=== PATIENT | female | born 1950 | race Caucasian/White ===

== ENCOUNTER 2024-07-23 13:02 | Emergency (ER) | payer MEDICARE, MEDICAID ==
[~2024-07-23] VITALS: Ht 172.7 cm; Wt 62.0 kg
[~2024-07-23 13:02] MED LIST: ALBU18HF2 INH; ALPR0.5T9 PO; AMLO10TA PO; BUSP5TAB3 PO; CETI-90 PO; CYCL-920 PO; DICY-19 PO; DOCU100C40 PO; DULO60CA65 PO; ESCI20TA39 PO; ESOM40CA PO; ESTR1TAB19 PO; GABA100C PO; HYDR-3965 PO; LISI20TA28 PO; LORA10TA7 PO; MELA5TAB66 PO; METR-159 PO; RANI150T8 PO; SENN8.6T19 PO; SUCR1TAB34 PO
[2024-07-23 13:14] VITALS: TEMP 98.9
[2024-07-23] MEDS: diatr meglu/diatrizoate 30ml oral sol.-(3 dose) bottle PO SCH (13:15)
[2024-07-23 13:40] LABS: BILIRUBIN,URINE NEGATIVE (Neg); CLARITY,URINE CLEAR (Clear); COLOR,URINE YELLOW (Yellow); GLUCOSE, URINE NEGATIVE (Neg); KETONES,URINE 15 mg/dl (Neg); LEUKOCYTE ESTERASE ,URINE NEGATIVE (Neg); NITRITES, URINE NEGATIVE (Neg); OCCULT BLOOD,URINE NEGATIVE (Neg); PH,URINE 8.5 (4.8-8.0); PROTEIN,URINE NEGATIVE (Neg); UROBILINOGEN,URINE 0.2 E.U/dL (0.2-1.0)
[2024-07-23 13:50] LABS: UA COLLECTION TYPE NON-SPECIFIED
[2024-07-23] MEDS: IOHEXOL 12MG/ML oral solution 1,000 ML BOTTLE-COMPOUND-RX PO ONE (13:51)
[2024-07-23 14:02] LABS: ALBUMIN 4.5 G/DL (3.4-5.0); ANION GAP 10 (8-16); BLOOD UREA NITROGEN 12 MG/DL (7-18); BUN/CREATININE RATIO 13.3 (10.0-20.0); CALCIUM 9.4 MG/DL (8.5-10.1); CHLORIDE 102 MMOL/L (99-107); GLUCOSE 100 MG/DL (70-104); LIPASE 21 U/L (16-77); MAGNESIUM 1.8 MG/DL (1.5-2.4); POTASSIUM 3.8 MMOL/L (3.5-5.1); SODIUM 139 MMOL/L (135-145); TOTAL CARBON DIOXIDE 27.1 MMOL/L (24-32); eCRCL 53 ML/MIN; eGFR 61 ML/MIN
[2024-07-23] MEDS ORDERED: IOHEXOL 12MG/ML oral solution 1,000 ML BOTTLE-COMPOUND-RX PO ONE (14:05)
[2024-07-23 14:11] LABS: PROTHROMBIN TIME 10.6 SECONDS (9.0-12.0)
[2024-07-23 14:18] LABS: APTT 20 SECONDS (22-32)
[2024-07-23] MEDS: normal saline 1000ml 1,000 ML IV ONE (14:18)
[2024-07-23] MEDS: morphine 2 MG/ML inj. syringe IV PRN (14:54)
[2024-07-23] MEDS ORDERED: iohexol 300mg/ml 100ml inj. ONE (15:31)
[2024-07-23 15:38] LABS: EOSINOPHILS % (AUTO) 0.1 % (0-6); MONOCYTES # (AUTO) 0.4 X10'3 (0-0.9)
[2024-07-23 15:41] LABS: BASOPHILS % (AUTO) 0.4 % (0-1); HEMATOCRIT 33.4 % (35.0-45.0); HEMOGLOBIN 10.8 g/dl (12.0-16.0); LYMPHOCYTES % (AUTO) 19.5 % (21-51); MEAN CORPUSCULAR HEMOGLOBIN 22.8 PG (27.0-31.0); MEAN CORPUSCULAR HGB CONC 32.5 g/dL (33.0-36.5); MEAN CORPUSCULAR VOLUME 70.1 FL (78-98); MEAN PLATELET VOLUME 10.5 FL (7.4-10.4); NEUTROPHILS # (AUTO) 7.7 X10'3 (1.8-7.7); RED BLOOD COUNT 4.76 X10'6 (4.20-5.60); RED CELL DISTRIBUTION WIDTH 17.1 % (11.5-14.5); WHITE BLOOD COUNT 10.2 X10'3 (4.5-11.0)
[2024-07-23] MEDS ORDERED: IPRA30SP BOTHNARES (16:10)
[2024-07-23] MEDS ORDERED: GABA300T28 (16:10)
[2024-07-23] MEDS ORDERED: OMEP40CA21 (16:10)
[2024-07-23] MEDS ORDERED: MIRT-87 PO (16:10)
[2024-07-23] MEDS ORDERED: TRAZ-251 PO (16:10)
[2024-07-23] MEDS ORDERED: ESTR10TA9 (16:10)
[2024-07-23] MEDS ORDERED: QUET25TA36 PO (16:10)
[2024-07-23] MEDS ORDERED: PANT40TA54 PO (16:10)
[2024-07-23 16:19] LABS: PLATELET COUNT 255 X10'3 (140-440)
[2024-07-23] MEDS: dexamethasone sod phosphate 10mg/ml inj IV STA (17:45)
[2024-07-23 17:48] LABS: ALANINE AMINOTRANSFERASE 24 U/L (12-78); ALBUMIN/GLOBULIN RATIO 1.4 (1.1-1.5); ALKALINE PHOSPHATASE 93 IU/L (46-116); ASPARTATE AMINO TRANSFERASE 21 U/L (10-37); BILIRUBIN,DIRECT 0.2 MG/DL (0-0.3); BILIRUBIN,TOTAL 0.8 MG/DL (0.1-1.0); TOTAL PROTEIN 7.7 G/DL (6.4-8.2)
[2024-07-23 17:50] VITALS: BP 136/76; PULSE 71; RESP 16; O2SAT 93
== END 2024-07-23 17:52 | disposition home or self-care (01) ==
LOC: ER 13:03
DX: R10.9 Unspecified abdominal pain (principal); Z87.891 Personal history of nicotine dependence; Z88.2 Allergy status to sulfonamides; Z88.1 Allergy status to other antibiotic agents
CPT/HCPCS: 36415; 74177; 80048; 80076; 81003; 83690; 83735; 85025; 85610; 85730; 96361; 96374; 96375; 96376; 99285; J1100; J2270; J7030; Q9963; Q9967